=== PATIENT | male | born 1940 ===

== ENCOUNTER 2016-11-14 22:09 | Emergency (ER) | payer MEDICARE ==
[2016-11-14 22:09] VITALS: BMI 24.5
[2016-11-14] MEDS ORDERED: Nicardipine 20 MG/200 ML 20 MG/200 ML BAG IV ONE (22:44)
--- NOTE | 2016-11-14 22:50 | CT ---
EXAM: CT Head Without Intravenous Contrast CLINICAL HISTORY: 76 years old, male; Signs and symptoms; Alteration of consciousness and altered mental status/memory loss; Other: AMS generalized weakness; Confusion or disorientation; Patient HX: AMS. Generalized weakness. Peritoneal dialysis. Ckd; Additional info: Code stroke TECHNIQUE: Axial computed tomography images of the head/brain without intravenous contrast. This CT exam was performed using one or more of the following dose reduction techniques: automated exposure control, adjustment of the mA and/or kV according to patient size, and/or use of iterative reconstruction technique. Coronal and sagittal reformatted images were created and reviewed. COMPARISON: No relevant prior studies available. FINDINGS: Brain: Large bilateral subarachnoid hemorrhage is detected with acute hemorrhage interdigitating along primarily the base of the brain with ventricular extension. Significant vasogenic edema is also noted, with loss of smith-white matter differentiation throughout the entire parenchyma. Decreased attenuation is identified within the left frontal lobe, possibly the original source of this hemorrhage. Bones: No acute displaced fracture. Sinuses: Unremarkable as visualized. No acute sinusitis. Mastoid air cells: Unremarkable as visualized. No mastoid effusion. IMPRESSION: Significant bilateral subarachnoid hemorrhage and vasogenic edema. THIS REPORT CONTAINS FINDINGS THAT MAY BE CRITICAL TO PATIENT CARE. The findings were verbally communicated via telephone conference with Mariluz Storey at 10:50 PM EDT on 11/14/2016. The findings were acknowledged and understood.
[2016-11-14 22:54] LABS: BASO # 0.1 K/uL (0.0-0.2); EOS % 7.3 % (0.0-4.0); HEMATOCRIT 34.1 % (35.0-51.0); LYMPH # 2.6 K/uL (1.0-4.3); MEAN CELL VOLUME 98.1 fl (80.0-94.0); MEAN CORPUSCULAR HGB CONC 32.6 g/dL (33.0-37.0); MEAN PLATELET VOLUME 9.8 fl (7.2-11.7); MONO # 0.8 K/uL (0.0-0.8); NEUT # 9.1 K/uL (1.8-7.0); NEUT % 66.7 % (50.0-75.0); RED CELL DISTRIBUTION WIDTH 13.5 % (11.5-14.5); WHITE BLOOD COUNT 13.7 K/uL (4.8-10.8)
--- NOTE | 2016-11-14 22:54 | ED PDOC ---
HPI:STROKE - Time Time: 22:15 - Historian Historian: Spouse - Chief Complaint Chief Complaint: Weakness, Mental status change - Onset Date: 11/14/16 Time: 21:15 - Timing Timing: Currently Symptomatic - Context Context: Sitting - Notes: Notes:: Pt in normal state of health when suddenly he started to cry out his 's first name repeatedly. reports that he never calls her by her first name and she found him sitting and punching with his RIGHT hand and kicking with his RIGHT leg. He was unable to tell her why he was doint that but he reported that he felt sick and she called 911. He then became unresponsive and has remained this way since. EMS found patient to be unresponsive, with pinpoint pupils so he was given Narcan. However there was minimal response. He arrives now unresponsive. reports that he had a normal day, he is always compliant with medications. PMD Dr Palafox NIHSS Stroke Scale - Date/Time Evaluation Performed Date Performed: 11/14/16 Time Performed: 20:15 When Was NIHSS Performed: Baseline - How Severe is the Stroke Level of Consciousness: 2=Obtunded LOC to Questions: 2=Neither correct LOC to commands: 2=Neither correct Best Gaze: 0=Normal Visual: 0=No visual loss Facial: 0=Normal Motor Arm - Left: 2=Falls before 10 sec Motor Arm - Right: 2=Falls before 10 sec Motor Leg - Left: 2=Falls before 5 sec Motor Leg - Right: 2=Falls before 5 sec Limb Ataxia: 0=Absent Sensory: 0=Normal Best Language: 3=Mute Dysarthia: 2=Severe, near unintelligible or worse Extinction & Inattention (Neglect): 0=Normal, no object Score: 19 rTPA Inclusion/Exclusion - Refusal of Treatment Patient Refused Treatment: No - Inclusion Criteria for Altepase Patient is 18 years or Older: Yes The Clinical Diagnosis of Ischemic Stroke That is Causing a Potentially Disabling Neurological Deficit: Yes Time of Onset is Well Established to be Less Than 270 Minute Before Treatment Would Begin: Yes Risk/Benefit Discussed With Patient/Family Member Present: Yes - Exclusion Criteria for Altepase Uncontrolled Hypertension at Time of Treatment (Systolic BP above 185 or Diastolic BP above 110 mmHg): Yes Active Internal Bleeding: No Evidence of an Intracranial Hemorrhage: Yes Suspicion of Subarachnoid Hemorrhage on Pretreatment Evaluation Even if CT Head Negative For Hemorrhage: Yes Past Medical History Reviewed: Historical Data, Nursing Documentation, Vital Signs Vital Signs: Last Vital Signs Temp 96.5 F L 11/14/16 22:13 Pulse 56 L 11/14/16 22:13 Resp 16 11/14/16 22:13 BP 209/91 H 11/14/16 22:13 Pulse Ox 99 11/14/16 22:13 - Medical History PMH: CHF, HTN, End Stage Renal Disease, Chronic Kidney Disease (CKD) Denies: Arthritis, COPD, Hypercholesterolemia, Hypothyroidism, Rheumatoid Arthritis - Surgical History Surgical History: Denies: CABG Other surgeries: Peritoneal dialysis - Family History Family History: States: Unknown Family Hx - Living Arrangements Living Arrangements: With Family - Social History Current smoker - smoking cessation education provided: No - Home Medications Home Medications: Ambulatory Orders Medication Instructions Recorded Aspirin [Aspirin Chewable] 1 tab PO DAILY 12/26/15 Atorvastatin [Lipitor] 40 mg PO HS 12/26/15 B Complex W-C No.20/Folic Acid 1 mg PO DAILY 12/26/15 [[place] Caps Softgel] Calcium Acetate [Phoslo] 667 mg PO TID 12/26/15 Carvedilol [Coreg] 25 mg PO BID 12/26/15 Clopidogrel [Plavix] 75 mg PO DAILY 12/26/15 Finasteride 5 mg PO DAILY 12/26/15 Isosorbide Mononitrate [Imdur] 60 mg PO DAILY 12/26/15 Lisinopril 20 mg PO BID 12/26/15 Spironolactone [Aldactone] 0.5 mg PO DAILY 12/26/15 hydrALAZINE [Apresoline] 50 mg PO TID 12/26/15 Moxifloxacin HCl [Avelox] 400 mg PO DAILY #7 tablet 12/27/15 - Allergies Allergies/Adverse Reactions: Allergies Allergy/AdvReac Type Severity Reaction Status Date / Time No Known Allergies Allergy Verified 12/26/15 09:02 Review of Systems Review Of Systems: ROS cannot be obtained secondary to pt's inabilty to answer questions. Physical Exam - Reviewed Nursing Documentation Reviewed: Yes Vital Signs Reviewed: Yes - Physical Exam Appears: Positive for: In Acute Distress Head Exam: Positive for: ATRAUMATIC, NORMOCEPHALIC Skin: Positive for: Warm, Dry Eye Exam: Positive for: Other (Pupils small and minimally reactive) ENT: Positive for: Pharynx Is (clear), Other (Gag reflex positive) Neck: Positive for: Painless ROM, Supple Cardiovascular/Chest: Positive for: JVD, Bradycardia. Negative for: Edema, Murmur Respiratory: Positive for: Normal Breath Sounds. Negative for: Accessory Muscle Use, Wheezing Gastrointestinal/Abdominal: Positive for: Soft. Negative for: Mass, Distended Back: Positive for: Normal Inspection Extremity: Negative for: Pedal Edema, Deformity Lymphatic: Negative for: Adenopathy Neurologic/Psych: Positive for: Other (See NIHSS. Pt localizing pain equally to ). Negative for: Alert, Oriented - Laboratory Results Result Diagrams: 11/14/16 22:47 11/14/16 22:47 - ECG ECG Rhythm: Positive for: Sinus Bradycardia, Nonspecific Changes (peaked t wave Lvh) O2 Sat by Pulse Oximetry: 99 Pulse Ox Interpretation: Normal - Radiology X-Ray: Interpreted by Me X-Ray Interpretation: No Acute Disease - Progress ED Course And Treament: Code stroke called on arrival EXAM: CT Head Without Intravenous Contrast CLINICAL HISTORY: 76 years old, male; Signs and symptoms; Alteration of consciousness and altered mental status/memory loss; Other: AMS generalized weakness; Confusion or disorientation ; Patient HX: AMS. Generalized weakness. Peritoneal dialysis. Ckd; Additional info: Code stroke TECHNIQUE: Axial computed tomography images of the head/brain without intravenous contrast. This CT exam was performed using one or more of the following dose reduction techniques: automated exposure control, adjustment of the mA and/or kV according to patient size, and/or use of iterative reconstruction technique. Coronal and sagittal reformatted images were created and reviewed. COMPARISON: No relevant prior studies available. FINDINGS: Brain: Large bilateral subarachnoid hemorrhage is detected with acute hemorrhage interdigitating along primarily the base of the brain with ventricular extension. Significant vasogenic edema is also noted, with loss of smith-white matter differentiation throughout the entire parenchyma. Decreased attenuation is identified within the left frontal lobe, possibly the original source of this hemorrhage. Bones: No acute displaced fracture. Sinuses: Unremarkable as visualized. No acute sinusitis. Mastoid air cells: Unremarkable as visualized. No mastoid effusion. IMPRESSION: Significant bilateral subarachnoid hemorrhage and vasogenic edema. THIS REPORT CONTAINS FINDINGS THAT MAY BE CRITICAL TO PATIENT CARE. The findings were verbally communicated via telephone conference with Mariluz Storey at 10 :50 PM EDT on 11/14/2016. The findings were acknowledged and understood. Thank you for allowing us to participate in the care of your patient. Dictated and Authenticated by: Linda Callaway MD Nicardipine ordered for BP control DW Dr Rickey Castro oncshannon who recommends transfer to higher level neuro center with vascular capabilities. 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 KO[facility] family findings and plan of care. Pt intubated for airway protection. 12am Pt pending bed availability at [facility]. - Critical Care Total Time (In Min): 60 Documented Critical Care: Time excludes all time spent performint seperately billable procedures Disposition - Clinical Impression Clinical Impression: Hemorrhagic cerebrovascular accident (CVA) Counseled Patient/Family Regarding: Studies Performed, Diagnosis - Disposition Disposition: Other Institution Disposition Time: 23:15 Condition: CRITICAL Procedure: Intubation - Time Performed Time Performed: 23:40 - Time Out Time Out: Side verified, Site verified, Patient ID confirmed - Consent Obtained Consent obtained: Emergent consent implied - Performed By Performed by: Attending Physician - Indications Indication(s):: Airway protection, Neurologically unstable - Method Method:: Oral-Laryngoscopy - Rapid Sequence Intubation Anesthetic:: Etomidate Paralytic:: Succinylcholine Pretreatment:: Pre-oxygenation - Tube type Tube type:: Endotracheal tube Tube size:: Cuffed Number of attempts:: 1 - Confirmation Confirmation: Direct visual.of intubate, End-tidal CO2 positive, Bilat. breath sounds, No epigastric gurgle - Post-intubation CXR Post-intubation CXR: Tube in good position
[2016-11-14 23:01] LABS: ALCOHOL SERUM < 10 mg/dl (0-10); ALKALINE PHOSPHATASE 87 U/L (38-126); ALT/SGPT 35 U/L (21-72); AST/SGOT 32 U/L (17-59); BILIRUBIN,TOTAL 0.5 mg/dl (0.2-1.3); BLOOD UREA NITROGEN 71 mg/dl (9-20); CALCIUM 8.5 mg/dL (8.4-10.2); CARBON DIOXIDE 20 mmol/L (22-30); CHLORIDE 113 mmol/L (98-107); CHOLESTEROL 102 mg/dL (0-199); GFR AFRICAN-AMERICAN 8; GLUCOSE,RANDOM 166 mg/dL (75-110); POTASSIUM 5.6 MMOL/L (3.6-5.0); SODIUM 144 mmol/l (132-148); TOTAL PROTEIN 6.9 G/DL (6.3-8.2)
[2016-11-14 23:11] LABS: PARTIAL THROMBOPLASTIN TIME 24.5 SECONDS (23.3-32.5)
[2016-11-14 23:16] LABS: ALB/GLOB RATIO 0.9 (1.0-2.1)
[2016-11-14] MEDS ORDERED: Desmopressin 4 mcg/ml Inj (10 ml) IV STA (23:20)
[2016-11-14] MEDS ORDERED: MANNITOL IV STA ×3 (23:22→23:57)
[2016-11-14] MEDS ORDERED: Etomidate 20 mg/10ml Inj IV ONE ×2 (23:28→23:48)
[2016-11-14] MEDS ORDERED: Succinylcholine 200 mg/10 ml Inj IV ONE ×2 (23:29→23:48)
[2016-11-14] MEDS ORDERED: Propofol 10 mg/ml 1,000 MG/100 ML VIAL IV SCH (23:30)
[2016-11-15 00:08] LABS: ABG ALLEN TEST YES; ABG MECHANICAL RATE 12; ARTERIAL BLOOD GAS MODE A/C; ARTERIAL BLOOD GAS O2 CAPACITY 17.2 mL/dL (16-24); ARTERIAL BLOOD GAS O2 CONTENT 17.2 ML/dL (15-23); ARTERIAL BLOOD GAS PH 7.35 (7.35-7.45); ARTERIAL BLOOD GAS PO2 474 mm/Hg (80-100); ARTERIAL BLOOD HGB O2 SAT 97.3 % (95.0-98.0); HHB -0.1 % (0.0-5.0); METHEMOGLOBIN 1.8 % (0.0-3.0)
[2016-11-15 00:38] VITALS: BP 108/53; PULSE 90; RESP 20; TEMP 98.4
[2016-11-15] MEDS ORDERED: Desmopressin 4 mcg/ml Inj (1 ml) IVP STA (00:44)
--- NOTE | 2016-11-15 10:01 | CARD ---
APPROVED REPORT EKG Measurement Heart [id number] <Conclusion> Sinus bradycardia Left axis deviation Left ventricular hypertrophy with repolarization abnormality Anteroseptal infarct, age undetermined Abnormal ECG
--- NOTE | 2016-11-15 10:07 | RAD ---
HISTORY: post intubation COMPARISON: Yesterday FINDINGS: LUNGS: Patient is intubated with endotracheal tube in the midtrachea. There is improved aeration from prior examination without focal infiltrate. PLEURA: No significant pleural effusion identified, no pneumothorax apparent. CARDIOVASCULAR: Heart is mildly enlarged. Aorta is uncoiled but unchanged. No CHF is seen. OSSEOUS STRUCTURES: No significant abnormalities. VISUALIZED UPPER ABDOMEN: Normal. OTHER FINDINGS: None. IMPRESSION: Status post intubation. Improved aeration.
--- NOTE | 2016-11-15 10:15 | RAD ---
HISTORY: code stroke COMPARISON: 06/12/2015 FINDINGS: LUNGS: Mild interstitial changes are noted although there is improved aeration and decreased vascular congestion from prior study. PLEURA: No significant pleural effusion identified, no pneumothorax apparent. CARDIOVASCULAR: Heart is enlarged. Aorta is unchanged. Trachea is stable with some prominence in the right paratracheal region probably representing great vessels. OSSEOUS STRUCTURES: No significant abnormalities. VISUALIZED UPPER ABDOMEN: Normal. OTHER FINDINGS: None. IMPRESSION: MK cardiomegaly and mild interstitial change. No focal infiltrate.
[2016-11-15 17:51] VITALS: O2SAT 99
== END 2016-11-15 01:26 | disposition short-term general hospital (02) ==
LOC: H.ER 22:09
DX: I60.9 Nontraumatic subarachnoid hemorrhage, unspecified (principal)
CPT/HCPCS: 31500; 36600; 70450; 71010; 80053; 80061; 80320; 80324; 80345; 80346; 80349; 80353; 80358; 80361; 82803; 83036; 83992; 84484; 85025; 85610; 85730; 86850; 86900; 93005; 94002; 96374; 96375; 99291; J0330; J2704